=== PATIENT | female | born 1955 | race Caucasian/White ===

== ENCOUNTER 2020-10-21 17:57 | Emergency (ER) | payer OTHER ==
[~2020-10-21] VITALS: Ht 165.1 cm; Wt 83.9 kg
[2020-10-21 18:09] VITALS: BP 175/85
--- NOTE | 2020-10-21 18:20 | NUR ---
Patient in tent for covid precaution
--- NOTE | 2020-10-21 18:26 | NUR ---
65 y/o female from home c/o cough and back pain x today. States + covid contact in the house. Denies SOB/chest pain. RR even and unlabored. Skin warm, dry, intact. VSS
--- NOTE | 2020-10-21 18:48 | NUR ---
Covid swab collected and sent to lab
[2020-10-21 18:58] VITALS: BP 175/85
--- NOTE | 2020-10-21 18:59 | NUR ---
Patient discharged with v/s stable. Written and verbal after care instructions given and explained. Patient alert, oriented and verbalized understanding of instructions. Ambulatory with steady gait. All questions addressed prior to discharge. ID band removed. Patient advised to follow up with PMD. Rx of Promethazine 6.25mg, Ibuprofen 400mg given. Patient educated on indication of medication including possible reaction and side effects. Opportunity to ask questions provided and answered.
== END 2020-10-21 18:59 | disposition home or self-care (01) ==
LOC: MED 17:57
DX: R03.0 Elevated blood-pressure reading, without diagnosis of hypertension (principal); Z20.828 Contact with and (suspected) exposure to other viral communicable diseases
CPT/HCPCS: 99283; U0003

== ENCOUNTER 2023-01-21 21:44 | Inpatient (IN) | payer OTHER ==
[~2023-01-21] VITALS: Ht 162.6 cm; Wt 89.8 kg
[~2023-01-21 21:44] MED LIST: AMLO-3 PO; APIX2.5 PO; APIX5TAB PO; ATOR20TA40 PO; ATOR40TA PO; CARV12.52 PO; CARV25TA PO; HYDR-4420 PO; LISI20TA29 PO; OMEP20EC11 PO
[2023-01-21 22:07] VITALS: BP 158/77
--- NOTE | 2023-01-21 22:07 | NUR ---
Director Of Convention Services no : [phone]
--- NOTE | 2023-01-21 22:39 | NUR ---
Patient returned back from X-ray.
[2023-01-21 23:04] LABS: BASOPHILS % (AUTO) 0.4 % (0.0-2.0); EOSINOPHILS # (AUTO) 0.1 K/uL (0-0.4); EOSINOPHILS % (AUTO) 0.7 % (0.0-4.0); HEMATOCRIT 36.4 % (36-48); HEMOGLOBIN 11.8 g/dL (12.0-16.0); LYMPHOCYTES # (AUTO) 2.7 K/uL (2.5-16.5); LYMPHOCYTES % (AUTO) 29.7 % (20.5-51.1); MEAN CORPUSCULAR HEMOGLOBIN 27 pg (27-31); MEAN CORPUSCULAR HGB CONC 33 g/dL (33-37); MEAN CORPUSCULAR VOLUME 81.6 fL (80-94); MONOCYTES # (AUTO) 0.8 K/uL (0.8-1.0); MONOCYTES % (AUTO) 8.3 % (1.7-9.3); NEUTROPHILS # (AUTO) 5.5 K/uL (1.8-7.7); NEUTROPHILS % (AUTO) 60.9 % (42.2-75.2); PLATELET COUNT (AUTO) 310 K/uL (140-450); RED BLOOD CELL COUNT(AUTO) 4.47 MIL/uL (4.20-5.40); RED CELL DISTRIBUTION WIDTH 13.9 % (11.6-13.7); WHITE BLOOD COUNT (AUTO) 9.1 K/uL (4.8-10.8)
[2023-01-21] MEDS ORDERED: MORPHINE SULFATE 4 MG/ML SYR IVP ONE (23:05)
[2023-01-21] MEDS ORDERED: ONDANSETRON 4 MG/2 ML VIAL IVP ONE (23:05)
--- NOTE | 2023-01-21 23:17 | NUR ---
PT TAKEN TO BED 7
[2023-01-21 23:20] LABS: ALBUMIN 3.8 g/dL (3.4-5.0); ANION GAP 9.7 (8-16); ASPARTATE AMINOTRANSFERASE 22 U/L (15-37); CARBON DIOXIDE 28.3 mmol/L (21-32); CHLORIDE 101 mmol/L (98-107); CREATININE 0.7 mg/dL (0.6-1.3); GFR ARICAN-AMERICAN 107 mL/min (>90); GLUCOSE 119 mg/dL (74-106); LIPASE 112 U/L (73-393); SODIUM SERUM 136 mmol/L (136-145); TOTAL BILIRUBIN 0.6 mg/dL (0.0-1.0); UREA NITROGEN, BLOOD 10 mg/dL (7-18)
--- NOTE | 2023-01-21 23:48 | NUR ---
PT TAKEN TO CT
[2023-01-22] MEDS ORDERED: ONDANSETRON 4 MG/2 ML VIAL ONE (00:19)
[2023-01-22] MEDS ORDERED: MORPHINE SULFATE 4 MG/ML SYR ONE (00:19)
[2023-01-22] MEDS ORDERED: POTASSIUM CHLORIDE 10 MEQ TABER PO ONE (00:25)
--- NOTE | 2023-01-22 01:00 | NUR ---
67YR FEMALE C/O MID GASTRIC ABD PAIN . PT STATES PAIN RADIATES TO LOWER BACK. 8/10 SHARP . PT IS A&OX4 BULGARIAN SPEAKING . DENIES SOB FEVER V/D. PT IS ON BEDSIDE MONITOR HOB ELEVATED. BED AT LOWEST POSITION NKDA CARDIAC HTN
[2023-01-22] MEDS ORDERED: KETOROLAC 15 MG/ML VIAL IVP ONE (01:35)
[2023-01-22] MEDS ORDERED: DICYCLOMINE HCL LIQUID 20 MG, ALUMINUM HYD/MAG/SIMETHICONE 30 ML, LIDOCAINE VISCOUS 2% ... PO ONE ×3 (01:35)
[2023-01-22] MEDS ORDERED: ALUMINUM HYD/MAG/SIMETHICONE 30 ML UDC ONE (02:13)
[2023-01-22] MEDS ORDERED: DICYCLOMINE HCL LIQUID 10 MG/5 ML UDC ONE (02:13)
--- NOTE | 2023-01-22 02:48 | NUR ---
ADMISSION TO TELE. PENDING BED ASSIG
[2023-01-22] MEDS ORDERED: FERR-15 PO (04:32)
[2023-01-22] MEDS ORDERED: [UNRECOGNIZED DRUG - CODE] PO (04:36)
--- NOTE | 2023-01-22 04:40 | NUR ---
Patient discharged with v/s stable. Written and verbal after care instructions given and explained to parent/guardian. Parent/Guardian verbalized understanding. Ambulatorysteady gait. All questions addressed prior to discharge. Advised to follow up with PMD.
--- NOTE | 2023-01-22 04:48 | NUR ---
MED RECONCILE COMPLETED
--- NOTE | 2023-01-22 05:04 | NUR ---
COVID SWAB COLLECTED
[2023-01-22] MEDS ORDERED: MORPHINE SULFATE 2 MG/ML SYR IVP STA (05:54)
--- NOTE | 2023-01-22 06:08 | NUR ---
BELONGINGS LIST COMPLETED
--- NOTE | 2023-01-22 06:13 | NUR ---
Ultrasound at bedside.
--- NOTE | 2023-01-22 06:25 | NUR ---
ULTRASOUND AT BEDSIDE
[2023-01-22] MEDS ORDERED: POTASSIUM CHLORIDE 10 MEQ TABER PO PRN (06:35)
[2023-01-22] MEDS ORDERED: MORPHINE SULFATE 4 MG/ML SYR IVP PRN (06:35)
[2023-01-22] MEDS ORDERED: ONDANSETRON 4 MG/2 ML VIAL IVP PRN (06:35)
[2023-01-22] MEDS ORDERED: MAGNESIUM OXIDE 400 MG TAB PO PRN (06:35)
--- NOTE | 2023-01-22 07:24 | NUR ---
REPORT RECEIVED FROM NELI GREWAL. ASSUMED CARE AT THIS TIME
--- NOTE | 2023-01-22 07:51 | NUR ---
pt provided w/ breakfast . pt awake and eating in bed
--- NOTE | 2023-01-22 08:35 | NUR ---
Patient will be admitted to care of MD CHAUDHARI. Admited to TELE. Will go to room 121A. Belongings list completed. Report to JAYLON WILKES.
--- NOTE | 2023-01-22 08:45 | NUR ---
RECEIVED PATIENT FROM NIGHT ER. PATIENT CAME ON [facility] , AMBULATORY WITH ASSISTIVE DEVICE CANE.VS BP 155/77, 70 MD, 95% O2, RR 18.PERIPHERAL IV ON RAC 20G.ON TELEMONITOR.WILL CONTINUE TO MONITOR.
[2023-01-22] MEDS ORDERED: ATORVASTATIN 20 MG TAB PO SCH (09:00)
[2023-01-22] MEDS: ASPIRIN 81 MG TAB.CHEW PO SCH (09:43)
--- NOTE | 2023-01-22 10:30 | NUR ---
USED FLIGHT TEST MECHANIC DEVICE FOR OBTAINING ADMISSION ASSESSMENT, FLIGHT TEST MECHANIC ID [id number]
[2023-01-22 12:00] VITALS: BP 143/66
[2023-01-22] MEDS: HYDROcodone/APAP 5/325 MG 1 TAB TAB PO PRN (13:46)
--- NOTE | 2023-01-22 13:46 | NUR ---
FREQUENT ROUNDS DONE PATIENT COMPLAINING OF PAIN WITH INTENSITY 6ON THE ABDOMEN.WILL MEDICATE PER PRN MEDS
[2023-01-22] MEDS: hydrALAZINE 25 MG TAB PO SCH ×2 (13:47→17:42)
--- NOTE | 2023-01-22 14:36 | NUR ---
PATIENT HAS BEEN SCREENED AND CATEGORIZED LOW NUTRITION RISK. PATIENT WILL BE SEEN WITHIN 7 DAYS OF ADMISSION. 01/29/23 [facility] REFERRAL RECEIVED ON 01/22/23. REFERRAL DOES NOT MEET HIGH RISK CRITERIA PER HOSPITAL POLICY. PT WILL BE SEEN AND ASSESSED ACCORDING TO THE NUTRITION CARE POLICY. REVIEWED BY MICHELA KNOX RD
[2023-01-22 16:00] VITALS: BP 159/68
--- NOTE | 2023-01-22 19:30 | NUR ---
RECEIVED PT IN BED AWAKE, ALERT AND ORIENTED X 4. DENIES PAIN AT THIS TIME. DENIES SHORTNESS OF BREATH. SKIN WARM AND DRY TO TOUCH. SAFETY PRECAUTION IN PLACE, CALL LIGHT IN REACH.
--- NOTE | 2023-01-22 19:30 | NUR ---
endorsed the patient to scene shifter nurse for the continuity of care.
[2023-01-22 20:00] VITALS: BP 153/80
[2023-01-22] MEDS: APIXABAN 2.5 MG TAB PO SCH (20:12)
[2023-01-22] MEDS: carvediloL 12.5 MG TAB PO SCH (20:12)
[2023-01-22] MEDS: ACETAMINOPHEN 325 MG TAB PO PRN (20:13)
[2023-01-23] VITALS: BP_SYST 132; BP_SYST 143; BP_DIAS 66; BP_DIAS 68
[2023-01-23 04:00] VITALS: BP 159/78
--- NOTE | 2023-01-23 06:26 | NUR ---
PATIENT IS ASLEEP. ALL NEEDS ATTENDED TO. NO DISTRESS NOTED. SAFETY PRECAUTIONS MAINTAINED DURING THE SHIFT, CALL LIGHT REMAINS WITHIN REACH.
[2023-01-23 07:08] LABS: BASOPHILS % (AUTO) 0.5 % (0.0-2.0); EOSINOPHILS # (AUTO) 0.1 K/uL (0-0.4); EOSINOPHILS % (AUTO) 0.6 % (0.0-4.0); HEMATOCRIT 36.1 % (36-48); HEMOGLOBIN 11.9 g/dL (12.0-16.0); LYMPHOCYTES # (AUTO) 1.2 K/uL (2.5-16.5); LYMPHOCYTES % (AUTO) 12.1 % (20.5-51.1); MEAN CORPUSCULAR HEMOGLOBIN 27 pg (27-31); MEAN CORPUSCULAR HGB CONC 33 g/dL (33-37); MEAN CORPUSCULAR VOLUME 80.7 fL (80-94); MONOCYTES # (AUTO) 0.9 K/uL (0.8-1.0); MONOCYTES % (AUTO) 8.9 % (1.7-9.3); NEUTROPHILS % (AUTO) 77.9 % (42.2-75.2); PLATELET COUNT (AUTO) 234 K/uL (140-450); RED BLOOD CELL COUNT(AUTO) 4.47 MIL/uL (4.20-5.40); RED CELL DISTRIBUTION WIDTH 13.5 % (11.6-13.7); WHITE BLOOD COUNT (AUTO) 10.2 K/uL (4.8-10.8)
[2023-01-23 07:20] LABS: ANION GAP 11.6 (8-16); CARBON DIOXIDE 26.6 mmol/L (21-32); CREATININE 0.6 mg/dL (0.6-1.3); POTASSIUM 4.2 mmol/L (3.5-5.1)
[2023-01-23 07:23] LABS: MAGNESIUM 1.9 mg/dL (1.8-2.4); PHOSPHORUS 3.7 mg/dL (2.5-4.9)
--- NOTE | 2023-01-23 07:26 | NUR ---
RECEIVED PATIENT FROM COT ASSEMBLER NURSE.PATIENT IN BED. VERBALLY RESPONSES. NO OTHER SIGNS OF DISTRESS NOTED.CALL LIGHT WITHIN REACH.WILL CONTINUE TO MONITOR.
[2023-01-23 08:00] VITALS: BP 154/75
[2023-01-23] MEDS: APIXABAN 2.5 MG TAB PO SCH ×2 (08:48→20:21)
[2023-01-23] MEDS: lisinopriL 20 MG TAB PO SCH (08:49)
[2023-01-23] MEDS: amLODIPine 5 MG TAB PO SCH (08:49)
[2023-01-23] MEDS: hydrALAZINE 25 MG TAB PO SCH ×3 (08:50→17:24)
[2023-01-23] MEDS: DILTIAZEM 120 MG CAPER PO SCH (08:50)
[2023-01-23] MEDS: ASPIRIN 81 MG TAB.CHEW PO SCH (08:51)
[2023-01-23] MEDS: ATORVASTATIN 20 MG TAB PO SCH (08:51)
[2023-01-23] MEDS: FERROUS SULFATE 325 MG TABEC PO SCH (08:51)
[2023-01-23] MEDS: carvediloL 12.5 MG TAB PO SCH ×2 (08:52→20:20)
--- NOTE | 2023-01-23 10:00 | NUR ---
FREQUENT ROUNDS DONE. PATIENT IS ALERT ORIENTED. NO SIGNS OF DISTRESS NOTED.ALL NEEDS MET UNTIL NOW.
--- NOTE | 2023-01-23 11:45 | NUR ---
DC PLANNING ASSESSMENT COMPLETE PLEASE REFER TO ASSESSMENT FOR DETAILS PT REPORTS DC PLAN IS FOR PT TO RETURN HOME WITH FAMILY PROVIDING TRANSPORTATION , WHEN MEDICALLY STABLE. Addendum: 01/24/23 at 0900 by Gladis HURD Amended: Links added.
[2023-01-23 12:00] VITALS: BP 116/47
[2023-01-23] MEDS: ACETAMINOPHEN 325 MG TAB PO PRN (15:43)
[2023-01-23 16:00] VITALS: BP 125/65
[2023-01-23] MEDS ORDERED: ALBUTEROL 0.083% 2.5 MG/3 ML NEBU INH SCH (19:00)
[2023-01-23] MEDS ORDERED: IPRATROPIUM 0.02% 0.5 MG/2.5 ML NEBU INH SCH (19:00)
--- NOTE | 2023-01-23 19:15 | NUR ---
RECEIVED PT FROM MORNING SHIFT NURSE. PT IS AOX4, KHMER SPEAKING, WITH AT BEDSIDE. PT IS ON ROOM AIR, AND ON CCHO DIET. PT IS AMBULATORY WITH CANE, ABLE TO VERBALIZE NEEDS AND ABLE TO FOLLOW COMMANDS. PT HAS IV ON RIGHT AC GAUGE 20. PT SKIN IS INTACT. ALL SAFETY MEASURES IMPLEMENTED. BED IN LOW POSITION, BED WHEELS ON LOCK AND CALL LIGHT WITHIN REACH.
--- NOTE | 2023-01-23 19:28 | NUR ---
ENDORSED PATIENT TO SALVAGE GRINDER NURSE FOR CONTINUITY OF CARE.
[2023-01-23 20:00] VITALS: BP 114/57
--- NOTE | 2023-01-23 20:21 | NUR ---
ALL SCHEDULED AND PRESCRIBED MEDICATION WAS GIVEN TO PT PER MD ORDER. ALL SAFETY MEASURES IMPLEMENTED. BED IN LOW POSITION, BED WHEELS ON LOCK AND CALL LIGHT WITHIN REACH.
--- NOTE | 2023-01-23 22:00 | NUR ---
WATER AND ANOTHER PILLOW WAS GIVEN TO PT PER PT REQUEST. PT DENIES PAIN AT THIS TIME. NO S/S OF RESPIRATORY DISTRESS NOTED. ALL SAFETY MEASURES IMPLEMENTED. BED IN LOW POSITION, BED WHEELS ON LOCK AND CALL LIGHT WITHIN REACH.
[2023-01-24] VITALS: BP 122/55
--- NOTE | 2023-01-24 | NUR ---
PT IS ON SLEEP. CHEST RISE AND FALL SYMMETRICALLY NOTED. RESPIRATION IS EVEN AND UNLABORED. NO S/S OF RESPIRATORY DISTRESS NOTED. ALL SAFETY MEASURES IMPLEMENTED. BED IN LOW POSITION, BED WHEELS ON LOCK AND CALL LIGHT WITHIN REACH.
--- NOTE | 2023-01-24 02:00 | NUR ---
CHECKED THE PT STILL ON SLEEP. CHEST RISE AND FALL SYMMETRICALLY NOTED. RESPIRATION IS EVEN AND UNLABORED. NO S/S OF RESPIRATORY DISTRESS NOTED. ALL SAFETY MEASURES IMPLEMENTED. BED IN LOW POSITION, BED WHEELS ON LOCK AND CALL LIGHT WITHIN REACH.
[2023-01-24 04:00] VITALS: BP 142/71
[2023-01-24] MEDS: HYDROcodone/APAP 5/325 MG 1 TAB TAB PO PRN ×2 (04:40→23:48)
--- NOTE | 2023-01-24 04:40 | NUR ---
PT WAS GIVEN PRN PAIN MEDICATION DUE TO ABD. PAIN WITH PAIN SCALE OF 6/10. ALL SAFETY MEASURES IMPLEMENTED. BED IN LOW POSITION, BED WHEELS ON LOCK AND CALL LIGHT WITHIN REACH.
[2023-01-24 06:32] LABS: BASOPHILS % (AUTO) 0.2 % (0.0-2.0); EOSINOPHILS # (AUTO) 0.1 K/uL (0-0.4); EOSINOPHILS % (AUTO) 0.6 % (0.0-4.0); HEMOGLOBIN 11.4 g/dL (12.0-16.0); LYMPHOCYTES # (AUTO) 1.2 K/uL (2.5-16.5); MEAN CORPUSCULAR HEMOGLOBIN 27 pg (27-31); MEAN CORPUSCULAR HGB CONC 34 g/dL (33-37); MEAN CORPUSCULAR VOLUME 80.2 fL (80-94); MONOCYTES # (AUTO) 0.9 K/uL (0.8-1.0); MONOCYTES % (AUTO) 8.9 % (1.7-9.3); NEUTROPHILS # (AUTO) 7.7 K/uL (1.8-7.7); NEUTROPHILS % (AUTO) 78.3 % (42.2-75.2); PLATELET COUNT (AUTO) 215 K/uL (140-450); RED BLOOD CELL COUNT(AUTO) 4.25 MIL/uL (4.20-5.40); RED CELL DISTRIBUTION WIDTH 13.5 % (11.6-13.7); WHITE BLOOD COUNT (AUTO) 9.9 K/uL (4.8-10.8)
--- NOTE | 2023-01-24 07:23 | NUR ---
PT IS STABLE. ENDORSED PT TO MORNING SHIFT NURSE FOR CONTINUITY OF CARE.
[2023-01-24 08:00] VITALS: BP 136/63
[2023-01-24 08:08] LABS: ANION GAP 6.3 (8-16); CARBON DIOXIDE 32.7 mmol/L (21-32); CREATININE 0.6 mg/dL (0.6-1.3)
[2023-01-24] MEDS: FERROUS SULFATE 325 MG TABEC PO SCH (08:56)
[2023-01-24] MEDS: lisinopriL 20 MG TAB PO SCH (08:57)
[2023-01-24] MEDS: carvediloL 12.5 MG TAB PO SCH ×2 (08:58→20:21)
[2023-01-24] MEDS: DILTIAZEM 120 MG CAPER PO SCH (08:59)
[2023-01-24] MEDS: hydrALAZINE 25 MG TAB PO SCH ×3 (09:00→17:44)
[2023-01-24] MEDS: ATORVASTATIN 20 MG TAB PO SCH (09:00)
[2023-01-24] MEDS: ASPIRIN 81 MG TAB.CHEW PO SCH (09:01)
[2023-01-24] MEDS: amLODIPine 5 MG TAB PO SCH (09:02)
[2023-01-24] MEDS: APIXABAN 2.5 MG TAB PO SCH (09:06)
[2023-01-24 12:00] VITALS: BP 120/60
[2023-01-24 16:00] VITALS: BP 126/60
--- NOTE | 2023-01-24 16:20 | NUR ---
ASSUMED CONTINUITY OF CARE. PT. A & O x3. PT. ON BEDSIDE. CALL LIGHT WITHIN REACH.
--- NOTE | 2023-01-24 19:07 | NUR ---
REPORT GIVEN TO RAMOS RUIZ IN STABLE CONDITION.
--- NOTE | 2023-01-24 19:08 | NUR ---
RECEIVED PT FROM MORNING SHIFT NURSE. PT IS AOX4, ARMENIAN SPEAKING. PT IS ON ROOM AIR, AND ON CCHO DIET. PT IS AMBULATORY WITH CANE, ABLE TO VERBALIZE NEEDS AND ABLE TO FOLLOW COMMANDS. PT HAS IV ON RIGHT AC GAUGE 20, SALINE LOCK. PT WILL BE ON NPO PRIYA AT BREAKFAST DUE TO CAMI SCAN AT 11:30 AM. NO COMPLAIN OF PAIN AT THIS TIME. NO S/S OF RESPIRATORY DISTRESS NOTED. PT SKIN IS INTACT. ALL SAFETY MEASURES IMPLEMENTED. BED IN LOW POSITION, BED WHEELS ON LOCK AND CALL LIGHT WITHIN REACH.
[2023-01-24 20:00] VITALS: BP 136/68
--- NOTE | 2023-01-24 20:21 | NUR ---
SCHEDULED AND PRESCRIBED MEDICATION WAS GIVEN TO PT. ALL SAFETY MEASURES IMPLEMENTED. BED IN LOW POSITION, BED WHEELS ON LOCK AND CALL LIGHT WITHIN REACH.
--- NOTE | 2023-01-25 02:00 | NUR ---
PT IS ON SLEEP. CHEST RISE AND FALL SYMMETRICALLY NOTED. RESPIRATION IS EVEN AND UNLABORED. NO S/S OF RESPIRATORY DISTRESS NOTED. ALL SAFETY MEASURES IMPLEMENTED, BED IN LOW POSITION, BED WHEELS ON LOCK AND CALL LIGHT WITHIN REACH.
--- NOTE | 2023-01-25 04:00 | NUR ---
CHECKED THE PT STILL ON SLEEP. CHEST RISE AND FALL SYMMETRICALLY NOTED. RESPIRATION IS EVEN AND UNLABORED. NO S/S OF RESPIRATORY DISTRESS NOTED. ALL SAFETY MEASURES IMPLEMENTED, BED IN LOW POSITION, BED WHEELS ON LOCK AND CALL LIGHT WITHIN REACH.
[2023-01-25 06:11] LABS: BASOPHILS % (AUTO) 0.5 % (0.0-2.0); EOSINOPHILS # (AUTO) 0.1 K/uL (0-0.4); EOSINOPHILS % (AUTO) 1.5 % (0.0-4.0); HEMATOCRIT 32.7 % (36-48); LYMPHOCYTES # (AUTO) 1.7 K/uL (2.5-16.5); LYMPHOCYTES % (AUTO) 21.4 % (20.5-51.1); MEAN CORPUSCULAR HEMOGLOBIN 27 pg (27-31); MEAN CORPUSCULAR HGB CONC 34 g/dL (33-37); MEAN CORPUSCULAR VOLUME 80.8 fL (80-94); MONOCYTES # (AUTO) 0.8 K/uL (0.8-1.0); MONOCYTES % (AUTO) 10.7 % (1.7-9.3); NEUTROPHILS # (AUTO) 5.1 K/uL (1.8-7.7); NEUTROPHILS % (AUTO) 65.9 % (42.2-75.2); PLATELET COUNT (AUTO) 209 K/uL (140-450); RED BLOOD CELL COUNT(AUTO) 4.05 MIL/uL (4.20-5.40); RED CELL DISTRIBUTION WIDTH 13.4 % (11.6-13.7); WHITE BLOOD COUNT (AUTO) 7.8 K/uL (4.8-10.8)
[2023-01-25 06:21] LABS: ANION GAP 10.1 (8-16); CARBON DIOXIDE 29.5 mmol/L (21-32); CREATININE 0.7 mg/dL (0.6-1.3); POTASSIUM 4.6 mmol/L (3.5-5.1)
[2023-01-25 06:22] LABS: MAGNESIUM 2.2 mg/dL (1.8-2.4); PHOSPHORUS 4.1 mg/dL (2.5-4.9)
--- NOTE | 2023-01-25 07:23 | NUR ---
PT IS STABLE. ENDORSED PT TO MORNING NURSE FOR CONTINUITY OF CARE.
--- NOTE | 2023-01-25 07:29 | NUR ---
RECEIVED PATIENT FROM DRAW BENCH OPERATOR NURSE.PATIENT IS IN NPO STATUS .PATIENT SITTING IN BED.VERBALLY RESPONSES.NO OTHER SIGNS OF DISTRESS NOTED.CALL LIGHT WITHIN REACH.ALL SAFETY MEASURES IN PLACE.WILL CONTINUE TO MONITOR.
[2023-01-25 08:00] VITALS: BP 124/67
[2023-01-25] MEDS: carvediloL 12.5 MG TAB PO SCH ×2 (09:00→21:29)
[2023-01-25] MEDS: amLODIPine 5 MG TAB PO SCH (09:41)
[2023-01-25] MEDS: ATORVASTATIN 20 MG TAB PO SCH (09:41)
[2023-01-25] MEDS: hydrALAZINE 25 MG TAB PO SCH ×3 (09:41→17:14)
[2023-01-25] MEDS: FERROUS SULFATE 325 MG TABEC PO SCH (09:42)
[2023-01-25] MEDS: lisinopriL 20 MG TAB PO SCH (09:42)
--- NOTE | 2023-01-25 12:45 | NUR ---
PATIENT OFF THE UNIT FOR HIDA SCAN.
[2023-01-25] MEDS ORDERED: MORPHINE SULFATE 2 MG/ML SYR IVP SCH (14:00)
--- NOTE | 2023-01-25 14:14 | NUR ---
PATIENT CAME TO UNIT AFTER HIDA SCAN.PATIENT TRANSFERED TO ROOM 126B FOR NUCLEAR PRECAUTION.UNTIL 2;00 AM MORNING.
[2023-01-25 18:53] VITALS: BP 141/62
--- NOTE | 2023-01-25 19:30 | NUR ---
ENDOPRSED APTIENT TO DISHWASHER NURSE FOR CONTINUITY OF CARE.
--- NOTE | 2023-01-25 19:30 | NUR ---
RECEIVED REPORT FROM DAY SHIFT NURSE ANU FOR CONTINUITY OF CARE. PATIENT IS A&O X4, ROMANIAN SPEAKING. PATIENT IS ON ROOM AIR, BREATHING IS NORMAL WITH SYMMETRICAL RISE AND FALL OF CHEST. IV IS A 20G RAC, NO FLUIDS RUNNING AT THIS TIME. PATIENT IS LYING SEMI-FOWLERS IN BED, WATCHING TV. BED IS IN LOWEST POSITION, WHEELS LOCKED, CALL LIGHT IN PLACE. WILL CONTINUE TO OBSERVE PATIENT.
[2023-01-25 20:00] VITALS: BP 134/68
--- NOTE | 2023-01-25 22:30 | NUR ---
PATIENT CALLED, WHEN I ENTERED THE ROOM, PATIENT WAS ON THE PHONE WITH DAUGHTER. PATIENT'S DAUGHTER STATED THAT HER MOTHER'S IV WAS BURNING HER AND ASKED IF IT COULD BE REMOVED SINCE WAS CURRENTLY NOT HOOKED UP TO AN IV. I EXPLAINED TO THE DAUGHTER THAT THE IV CAN BE REMOVED, BUT I NEED TO PUT ANOTHER IV IN HER SO I WOULD HAVE ACCESS TO THE VEIN IN THE EVENT THAT SOMETHING HAPPENED REQUIRING ME TO GIVE HER MOTHER SOMETHING IMMEDIATELY. THE DAUGHTER ASKED IF THEY COULD REMOVE THE OLD IV NOW, AND THEN PLACE THE NEW ONE IN THE MORNING. I EXPLAINED TO THE DAUGHTER THAT I WOULD NEED TO PUT IN A NEW ONE TONIGHT JUST IN CASE I WOULD NEED ACCESS TO HER MOTHER'S VEIN DURING THE NIGHT. I TOLD THE DAUGHTER THAT I WOULD PUT A NEW IV IN THE PATIENT AND REMOVE THE OLD ONE. THE DAUGHTER THANKED ME. A NEW IV WAS PLACED INTO THE PATIENT BY KATRIN RESTREPO, AND THE OLD ONE WAS REMOVED. NEW IV IS A 22G IN THE LEFT FOREARM. PATIENT THANKED US. WILL CONTINUE TO OBSERVE PATIENT.
--- NOTE | 2023-01-26 | NUR ---
DR. RYAN ROSE CAME TO SEE PATIENT. HE ASSESSED THE PATIENT AND ASKED HER IF SHE HAD ANY PAIN, PATIENT STATED NO. INFORMED ME TO GO AHEAD AND GIVE THE PATIENT SOMETHING TO EAT AND DRINK NOW AND THEN LEAVE HER NPO EXCEPT MEDS. I GAVE PATIENT A HAM AND CHEESE SANDWICH AND WATER; AND I INFORMED PATIENT THAT AFTER THIS THERE WOULD BE NOTHING ELSE BECAUSE OF HER TEST TOMORROW. PATIENT ACKNOWLEDGED UNDERSTANDING. I INFORMED OF WHAT I GAVE PATIENT, SAID THAT WAS FINE. WILL LOOK IN ON PATIENT IN FEW MINUTES TO CHECK STATUS OF FOOD CONSUMPTION.
--- NOTE | 2023-01-26 00:35 | NUR ---
LOOKED IN ON PATIENT. PATIENT HAD FINISHED MEAL AND HAD THROWN AWAY HER FOOD CONTAINER AND ALL HER WATER. PATIENT RESTATED UNDERSTANDING STATING; "NO MORE FOOD OR DRINK". I TOLD HER YES, AND SHE THANKED ME LYING ON HER SIDE TO GO TO SLEEP. PATIENT'S BREATHING IS NORMAL WITH SYMMETRICAL RISE AND FALL OF CHEST. WILL CONTINUE TO OBSERVE PATIENT.
[2023-01-26 06:09] LABS: BASOPHILS % (AUTO) 0.6 % (0.0-2.0); EOSINOPHILS # (AUTO) 0.1 K/uL (0-0.4); EOSINOPHILS % (AUTO) 1.9 % (0.0-4.0); HEMATOCRIT 33.3 % (36-48); HEMOGLOBIN 11.2 g/dL (12.0-16.0); LYMPHOCYTES # (AUTO) 1.5 K/uL (2.5-16.5); LYMPHOCYTES % (AUTO) 24.2 % (20.5-51.1); MEAN CORPUSCULAR HEMOGLOBIN 27 pg (27-31); MEAN CORPUSCULAR HGB CONC 34 g/dL (33-37); MEAN CORPUSCULAR VOLUME 79.7 fL (80-94); MONOCYTES # (AUTO) 0.7 K/uL (0.8-1.0); MONOCYTES % (AUTO) 10.5 % (1.7-9.3); NEUTROPHILS % (AUTO) 62.8 % (42.2-75.2); PLATELET COUNT (AUTO) 248 K/uL (140-450); RED BLOOD CELL COUNT(AUTO) 4.18 MIL/uL (4.20-5.40); RED CELL DISTRIBUTION WIDTH 13.2 % (11.6-13.7); WHITE BLOOD COUNT (AUTO) 6.3 K/uL (4.8-10.8)
--- NOTE | 2023-01-26 06:34 | NUR ---
PATIENT IS SCHEDULED FOR A STRESS TEST TODAY AT 1030; AND A LAP CHOLECYSTECTOMY AT 1500. PATIENT SLEPT THROUGHOUT THE NIGHT; CONSENT FOR PROCEDURE IS PRINTED OUT AND IN THE CHART. WILL ENDORSE TO DAY SHIFT NURSE FOR CONSENT SIGNATURE. WILL CONTINUE TO OBSERVE PATIENT.
[2023-01-26 06:42] LABS: ALBUMIN 3.2 g/dL (3.4-5.0); ANION GAP 10.8 (8-16); CARBON DIOXIDE 28.9 mmol/L (21-32); CREATININE 0.7 mg/dL (0.6-1.3); POTASSIUM 3.7 mmol/L (3.5-5.1); TOTAL BILIRUBIN 0.4 mg/dL (0.0-1.0)
[2023-01-26 06:47] LABS: MAGNESIUM 2.2 mg/dL (1.8-2.4); PHOSPHORUS 3.9 mg/dL (2.5-4.9)
--- NOTE | 2023-01-26 07:29 | NUR ---
ENDORSE TO DAY SHIFT NURSE SRUTHY FOR CONTINUITY OF CARE. PATIENT IS STABLE.
--- NOTE | 2023-01-26 07:38 | NUR ---
RECEIVED PATIENT FROM CHIEF COMPRESSOR STATION ENGINEER NURSE. PATIENT IN NPO STATUS. NO OTHER SIGNS OF DISTRESS NOTED. PATIENT VERBALLY RESPONSES.CALL LIGHT WITHIN REACH. WILL CONTINUE TO MONITOR.
[2023-01-26 08:00] VITALS: BP 130/64
[2023-01-26] MEDS: ATORVASTATIN 20 MG TAB PO SCH (08:45)
[2023-01-26] MEDS: lisinopriL 20 MG TAB PO SCH (08:46)
[2023-01-26] MEDS: hydrALAZINE 25 MG TAB PO SCH ×3 (08:46→17:28)
[2023-01-26] MEDS: amLODIPine 5 MG TAB PO SCH (08:47)
[2023-01-26] MEDS: FERROUS SULFATE 325 MG TABEC PO SCH (08:47)
[2023-01-26] MEDS: carvediloL 12.5 MG TAB PO SCH ×2 (08:47→21:06)
[2023-01-26] MEDS ORDERED: REGADENOSON 0.4 MG/5 ML SYR IV SCH (10:30)
[2023-01-26] MEDS ORDERED: LIDOCAINE OINTMENT 5% 35 GM TUBE TP ONE (14:19)
--- NOTE | 2023-01-26 14:30 | NUR ---
PATIENT CAME BACK FROM [facility]. FAMILY MEMBER AT BEDSIDE. ASKING QUESTIONS REGARDING THE PLAN OF SURGERY. GAVE ADVISE REGARDING THE PLAN OF SURGERY. NOTICED SANDWICH AND SODA ON THE TABLE. PATIENT IS KEPT ON NPO STATUS REMOVED THE FOOD AND DISCARDED. ADVISED THE FAMILY MEMBER REGARDING THE NEED FOR KEEPING NPO.
--- NOTE | 2023-01-26 15:50 | NUR ---
SURGERY POSTPONED. PATIENT CAME FROM OR TO ROOM.
[2023-01-26 16:00] VITALS: BP 134/69
--- NOTE | 2023-01-26 19:30 | NUR ---
ENDORSED THE PATIENT TO STOCK SHIPPER NURSE FOR THE CONTINUITY OF CARE.
[2023-01-26] MEDS: ACETAMINOPHEN 325 MG TAB PO PRN (21:06)
--- NOTE | 2023-01-26 21:06 | NUR ---
PATIENT COMPLAINED OF HEADACHE, MEDICATED.
[2023-01-27] VITALS: BP 134/66
--- NOTE | 2023-01-27 05:53 | NUR ---
PATIENT IN BED AWAKE. NO DISTRESS NOTED ON ROOM AIR. NO COMPLAINTS OF PAIN OR ANY DISCOMFORT AT THIS TIME. CALL LIGHT IN REACH. PATIENT IN STABLE CONDITION.
[2023-01-27 07:09] LABS: BASOPHILS % (AUTO) 0.9 % (0.0-2.0); EOSINOPHILS # (AUTO) 0.2 K/uL (0-0.4); EOSINOPHILS % (AUTO) 3.6 % (0.0-4.0); HEMATOCRIT 35.1 % (36-48); HEMOGLOBIN 11.7 g/dL (12.0-16.0); LYMPHOCYTES # (AUTO) 1.7 K/uL (2.5-16.5); LYMPHOCYTES % (AUTO) 32.1 % (20.5-51.1); MEAN CORPUSCULAR HEMOGLOBIN 27 pg (27-31); MEAN CORPUSCULAR HGB CONC 33 g/dL (33-37); MEAN CORPUSCULAR VOLUME 81.1 fL (80-94); MONOCYTES # (AUTO) 0.5 K/uL (0.8-1.0); MONOCYTES % (AUTO) 9.8 % (1.7-9.3); NEUTROPHILS # (AUTO) 2.9 K/uL (1.8-7.7); NEUTROPHILS % (AUTO) 53.6 % (42.2-75.2); PLATELET COUNT (AUTO) 267 K/uL (140-450); RED BLOOD CELL COUNT(AUTO) 4.33 MIL/uL (4.20-5.40); RED CELL DISTRIBUTION WIDTH 13.6 % (11.6-13.7); WHITE BLOOD COUNT (AUTO) 5.3 K/uL (4.8-10.8)
--- NOTE | 2023-01-27 07:39 | NUR ---
ENDORSED PATIENT TO NURSE DAVID FOR CONTINUITY OF CARE. PATIENT STABLE.
--- NOTE | 2023-01-27 07:40 | NUR ---
RECEIVED PT FROM NIGHT RN, PT IS UZBEK SPEAKING ON ROOM AIR, LYING ON THE BED WITH SIDE RAILS UP AND CALL LIGHT WITHIN REACH, IV LINE NOTED ON THE LEFT FOREARM G. 22 ON SALINE LOCK, NO SIGN OF DISTRESS NOTED AND WILL CONTIENU TO MONITOR PT.
[2023-01-27 07:42] LABS: CARBON DIOXIDE 26.7 mmol/L (21-32); CREATININE 0.7 mg/dL (0.6-1.3); POTASSIUM 3.7 mmol/L (3.5-5.1)
[2023-01-27 08:00] VITALS: BP 147/41
[2023-01-27 08:10] LABS: MAGNESIUM 2.2 mg/dL (1.8-2.4); PHOSPHORUS 4.8 mg/dL (2.5-4.9)
--- NOTE | 2023-01-27 08:36 | NUR ---
RECEIVED A CALL FROM DR. ROSE AND GAVE A TELEPHONE ORDER TO GIVE PT ROCEPHIN 1GM IV Q24H, KEEP PT NPO AND DO A TYPE AND SCREEN, DR. ROSE SAID THAT HE WILL DO SURGERY TO PT TODAY, ORDERS VERIFIED AND WILL BE CARRIED OUT.
--- NOTE | 2023-01-27 08:45 | NUR ---
SPOKE TP PT NOW AND INFORMED PT THAT DR. ROSE CALLED AND SAID THAT HE WILL DO SURGERY, PT WAS TOLD TO BE KEPT NPO FROM THIS TIME.
[2023-01-27] MEDS: FERROUS SULFATE 325 MG TABEC PO SCH (10:16)
[2023-01-27] MEDS: lisinopriL 20 MG TAB PO SCH (10:17)
[2023-01-27] MEDS: carvediloL 12.5 MG TAB PO SCH ×2 (10:17→21:19)
[2023-01-27] MEDS: amLODIPine 5 MG TAB PO SCH (10:18)
[2023-01-27] MEDS: hydrALAZINE 25 MG TAB PO SCH ×3 (10:19→21:18)
[2023-01-27] MEDS: ATORVASTATIN 20 MG TAB PO SCH (10:21)
[2023-01-27 16:00] VITALS: BP 113/50
[2023-01-27] MEDS ORDERED: fentaNYL citrate 0.05 MG/ML - 50mL vial IV ONE (16:00)
[2023-01-27] MEDS ORDERED: DEXAMETHASONE 10 MG/ML VIAL ONE (16:00)
[2023-01-27] MEDS ORDERED: ROCURONIUM 50 MG/5 ML VIAL IV ONE (16:00)
[2023-01-27] MEDS ORDERED: ONDANSETRON 4 MG/2 ML VIAL ONE (16:00)
[2023-01-27] MEDS ORDERED: ePHEDrine 50 MG/ML VIAL ONE ×2 (16:00→17:27)
[2023-01-27] MEDS ORDERED: SUGAMMADEX SODIUM 200 MG/2 ML VIAL IV ONE ×2 (16:00→16:46)
[2023-01-27] MEDS ORDERED: PROPOFOL 200 MG/20 ML VIAL IV ONE ×2 (16:00→17:27)
[2023-01-27] MEDS ORDERED: SEVOFLURANE 250 ML BTL INH ONE (16:00)
[2023-01-27] MEDS ORDERED: ONDANSETRON 4 MG/2 ML VIAL IVP PRN (16:45)
[2023-01-27] MEDS: LACTATED RINGERS 1,000 ML IV SCH (16:45)
[2023-01-27] MEDS ORDERED: diphenhydrAMINE 50 MG/ML VIAL IVP PRN (16:45)
[2023-01-27] MEDS ORDERED: LIDOCAINE/EPI MPF 2%1:200000 10 ML VIAL INJ ONE (16:45)
[2023-01-27] MEDS ORDERED: MEPERIDINE 25 MG/ML SYR IVP PRN (16:45)
[2023-01-27] MEDS ORDERED: BUPIVACAINE MPF 0.25% 10 ML VIAL INJ ONE (16:45)
[2023-01-27] MEDS ORDERED: fentaNYL citrate 0.05 MG/ML VIAL ONE (16:46)
[2023-01-27] MEDS ORDERED: HYDROmorphone PFS 2 MG/ML SYR ONE (19:36)
[2023-01-27] MEDS: HYDROmorphone 1 MG/ML AMP IVP PRN ×2 (19:36→19:46)
--- NOTE | 2023-01-27 19:41 | NUR ---
GAVE REPORT TO NIGHT RN FOR CONTINUITY OF CARE, PT IS STILL IN SURGERY.
--- NOTE | 2023-01-27 20:00 | NUR ---
NURSE REPORT REPORT OBTAINED FROM [facility] NURSE KIMBERLEY AND THIS NURSE ASSUMED CARE. ADMISSION WASN'T DONE BY THIS NURSE. PATIENT WAS IN RECOVERY WHEN THIS NURSE GOT REPORT. WILL TRY TO DO ADMISSION LATER.
[2023-01-27 20:15] VITALS: BP 143/58
--- NOTE | 2023-01-27 20:30 | NUR ---
NURSE REPORT REPORT OBTAINED FROM RECOVERY NURSE CHURCH AT 1999 AND PATIENT ARRIVED ABOUT THIS TIME. NO C/O PAIN. ERI DRAINING SANGUINOUS FLUID AND EDWARDS WITH YELLOW URINE.
[2023-01-28] MEDS: LACTATED RINGERS 1,000 ML IV SCH ×4 (01:05→22:11)
[2023-01-28] MEDS: HYDROmorphone 1 MG/ML AMP IVP PRN (03:00)
--- NOTE | 2023-01-28 03:00 | NUR ---
NURSE NOTES VSS. AFEB. C/O PAIN AND MEDICATED WITH DIALUDID 1 MG IVP.
[2023-01-28 06:13] LABS: BASOPHILS % (AUTO) 0.4 % (0.0-2.0); HEMATOCRIT 35.2 % (36-48); HEMOGLOBIN 11.6 g/dL (12.0-16.0); LYMPHOCYTES # (AUTO) 0.6 K/uL (2.5-16.5); MEAN CORPUSCULAR HEMOGLOBIN 27 pg (27-31); MEAN CORPUSCULAR HGB CONC 33 g/dL (33-37); MEAN CORPUSCULAR VOLUME 81.9 fL (80-94); MONOCYTES # (AUTO) 0.1 K/uL (0.8-1.0); NEUTROPHILS # (AUTO) 5.1 K/uL (1.8-7.7); PLATELET COUNT (AUTO) 246 K/uL (140-450); RED BLOOD CELL COUNT(AUTO) 4.29 MIL/uL (4.20-5.40); RED CELL DISTRIBUTION WIDTH 13.4 % (11.6-13.7); WHITE BLOOD COUNT (AUTO) 5.7 K/uL (4.8-10.8)
[2023-01-28 06:35] LABS: ALBUMIN 3.1 g/dL (3.4-5.0); ANION GAP 13.8 (8-16); CARBON DIOXIDE 26.7 mmol/L (21-32); CREATININE 0.6 mg/dL (0.6-1.3); POTASSIUM 5.5 mmol/L (3.5-5.1); TOTAL BILIRUBIN 0.5 mg/dL (0.0-1.0)
[2023-01-28 07:26] LABS: LYMPHOCYTES % (AUTO) 9.7 % (20.5-51.1); MONOCYTES % (AUTO) 1.2 % (1.7-9.3); NEUTROPHILS % (AUTO) 88.7 % (42.2-75.2)
[2023-01-28 08:00] VITALS: BP 120/60
--- NOTE | 2023-01-28 08:00 | NUR ---
NURSE REPORT REPORT GIVEN TO DAYSHIFT NURSE YUNIEL TO ASSUME CARE OF PATIENT. ALL QUESTIONS ANSWERED. ADALID HERNANDEZ RN
[2023-01-28] MEDS: amLODIPine 5 MG TAB PO SCH (09:37)
[2023-01-28] MEDS: ATORVASTATIN 20 MG TAB PO SCH (09:37)
[2023-01-28] MEDS: carvediloL 12.5 MG TAB PO SCH ×2 (09:37→21:00)
[2023-01-28] MEDS: lisinopriL 20 MG TAB PO SCH (09:37)
[2023-01-28] MEDS: hydrALAZINE 25 MG TAB PO SCH ×3 (09:38→17:17)
[2023-01-28] MEDS: FERROUS SULFATE 325 MG TABEC PO SCH (09:39)
[2023-01-28] MEDS: HYDROcodone/APAP 5/325 MG 1 TAB TAB PO PRN ×2 (14:23→22:11)
[2023-01-28 16:00] VITALS: BP 139/69
[2023-01-29] VITALS: BP 133/66
[2023-01-29] MEDS: HYDROcodone/APAP 5/325 MG 1 TAB TAB PO PRN (04:56)
--- NOTE | 2023-01-29 07:38 | NUR ---
NURSES NOTE PATIENT RECEIVED AT BED SIDE , A/OX4 , VSS , ON ROOM AIR , ON CARDIAC DIET AMBULATORY , CONTINENT X2, ON IV FLUID RL 120CC/H , SKIN INTACT , SAFETY PROACTION ON PLACE , SIDE RAILS UP X3 BED IN LOWER POSITION , CALL LIGHT WITHIN REACH , NO COMPLAIN AT THIS TIME , STILL UNDER OBSERVE .
--- NOTE | 2023-01-29 07:46 | NUR ---
NURSES NOTE PATIENT SEEN BY DR DRAIN REMOVED , PT STILL UNDER OBSERVE .
[2023-01-29] MEDS: hydrALAZINE 25 MG TAB PO SCH (08:18)
[2023-01-29] MEDS: carvediloL 12.5 MG TAB PO SCH (08:18)
[2023-01-29] MEDS: ATORVASTATIN 20 MG TAB PO SCH (08:19)
[2023-01-29] MEDS: lisinopriL 20 MG TAB PO SCH (08:19)
[2023-01-29] MEDS: FERROUS SULFATE 325 MG TABEC PO SCH (08:19)
[2023-01-29] MEDS: amLODIPine 5 MG TAB PO SCH (08:19)
[2023-01-29] MEDS ORDERED: ACET-9525 PO (08:29)
[2023-01-29 08:42] VITALS: BP 128/64
[2023-01-29 08:55] VITALS: BP 128/64
[2023-01-29] MEDS ORDERED: ENOXAPARIN 40 MG/0.4 ML SYR SUBQ SCH (09:00)
[2023-01-29] MEDS ORDERED: SODIUM POLYSTYRENE 15 GM/60 ML UDBTL PO SCH (09:00)
[2023-01-29] MEDS: LACTATED RINGERS 1,000 ML IV SCH (10:25)
[2023-01-29 10:26] LABS: ANION GAP 10.1 (8-16); CARBON DIOXIDE 30.7 mmol/L (21-32); CREATININE 0.9 mg/dL (0.6-1.3); POTASSIUM 3.8 mmol/L (3.5-5.1)
--- NOTE | 2023-01-29 10:31 | NUR ---
NURSES NOTE PATIENT A/OX4 , VSS , PATIENT HAS DISCHARGE TO GO HOME , MEDICATION RECONCILED , DISCHARGE PACKET EXPLAIN FOR PATIENT PATIENT VERBALIZED UNDERSTANDING OF GIVEN , ALL HER DOCUMENT SIGN AND PLACED IN CHART , HER BELONGING TAKEN IV AND ARM BAND REMOVED , ASSISTED TO LOBBY AND PICKED UP BY HER FAMILY , ADDRESS TO FLOW UP WITHIN ONE WEEK WITH SURGEON FOR REMOVED STITCHES.
== END 2023-01-29 11:25 | disposition home or self-care (01) | DRG 418 ==
LOC: MED 21:44 → OBSVTOIN 01-22 06:41 → MTU 01-22 06:41 → MMU 01-25 15:57
PROVIDERS: ADMIT Hospitalist; ATTEND Hospitalist
PROC: 0DNU4ZZ Release Omentum, Percutaneous Endoscopic Approach (ICD-10-PCS; 2023-01-27)
PROC: 0FT44ZZ Resection of Gallbladder, Percutaneous Endoscopic Approach (ICD-10-PCS; principal; 2023-01-27 17:00)
DX: K80.00 Calculus of gallbladder with acute cholecystitis without obstruction (principal); E87.1 Hypo-osmolality and hyponatremia; E87.6 Hypokalemia; I10 Essential (primary) hypertension; E78.5 Hyperlipidemia, unspecified; I48.0 Paroxysmal atrial fibrillation; Z20.822 Contact with and (suspected) exposure to COVID-19; Z79.899 Other long term (current) drug therapy
CPT/HCPCS: 36415; 71045; 76705; 78445; 80048; 80053; 82374; 83690; 83735; 84100; 84484; 85025; 86886; 86900; 86901; 87070; 87075; 87081; 87186; 87205; 93005; 96374; 96375; 99285; A9500; A9502; J0696; J1100; J1170; J1644; J1650; J1885; J2001; J2270; J2405; J2704; J2785; J3010; J3490; J7030; J7060; J7613; J7644; Q0092

== ENCOUNTER 2023-03-07 19:10 | Emergency (ER) | payer OTHER ==
[~2023-03-07] VITALS: Ht 162.6 cm; Wt 86.2 kg
[~2023-03-07 19:10] MED LIST changes: +ACET-9525 PO; -APIX2.5 PO; -ATOR40TA PO; -CARV25TA PO; +FERR-15 PO; +[UNRECOGNIZED DRUG - CODE] PO
[2023-03-07 19:41] VITALS: BP 161/92
--- NOTE | 2023-03-07 20:00 | NUR ---
PT TAKEN TO BED 5
--- NOTE | 2023-03-07 20:17 | NUR ---
Dr. Goncalves examining patient.
[2023-03-07 20:41] LABS: BASOPHILS % (AUTO) 0.7 % (0.0-2.0); EOSINOPHILS # (AUTO) 0.4 K/uL (0-0.4); EOSINOPHILS % (AUTO) 7.3 % (0.0-4.0); HEMATOCRIT 34.1 % (36-48); HEMOGLOBIN 11.3 g/dL (12.0-16.0); LYMPHOCYTES # (AUTO) 1.5 K/uL (2.5-16.5); LYMPHOCYTES % (AUTO) 28.7 % (20.5-51.1); MEAN CORPUSCULAR HEMOGLOBIN 27 pg (27-31); MEAN CORPUSCULAR HGB CONC 33 g/dL (33-37); MEAN CORPUSCULAR VOLUME 81.3 fL (80-94); MONOCYTES # (AUTO) 0.4 K/uL (0.8-1.0); MONOCYTES % (AUTO) 7.9 % (1.7-9.3); NEUTROPHILS # (AUTO) 2.9 K/uL (1.8-7.7); NEUTROPHILS % (AUTO) 55.4 % (42.2-75.2); PLATELET COUNT (AUTO) 205 K/uL (140-450); RED CELL DISTRIBUTION WIDTH 15.5 % (11.6-13.7); WHITE BLOOD COUNT (AUTO) 5.3 K/uL (4.8-10.8)
--- NOTE | 2023-03-07 20:41 | NUR ---
Urine sample collected and sent to lab.
[2023-03-07 20:43] LABS: APPEARANCE,URINE CLEAR (CLEAR); BILIRUBIN,URINE NEGATIVE (NEGATIVE); BLOOD, URINE NEGATIVE (NEGATIVE); COLOR,URINE YELLOW (YELLOW); LEUKOCYTE ESTERASE ,URINE NEGATIVE (NEGATIVE); NITRITE, URINE NEGATIVE (NEGATIVE); PH,URINE 7.5 (5.0-9.0); UGLUCOSE NEGATIVE (NEGATIVE)
--- NOTE | 2023-03-07 20:58 | NUR ---
Ultrasound at bedside.
[2023-03-07 21:00] LABS: ALBUMIN 3.6 g/dL (3.4-5.0); ANION GAP 7.5 (8-16); CARBON DIOXIDE 29.9 mmol/L (21-32); CREATININE 0.6 mg/dL (0.6-1.3); POTASSIUM 3.4 mmol/L (3.5-5.1); TOTAL BILIRUBIN 0.5 mg/dL (0.0-1.0)
[2023-03-07] MEDS ORDERED: FURO-572 PO (22:58)
--- NOTE | 2023-03-07 23:02 | NUR ---
Dr. Goncalves examining patient.
[2023-03-07 23:22] VITALS: BP 154/86
--- NOTE | 2023-03-07 23:22 | NUR ---
Patient discharged with v/s stable. Written and verbal after care instructions given and explained. Patient alert, oriented and verbalized understanding of instructions. All questions addressed prior to discharge. ID band removed. Patient advised to follow up with PMD. Rx of Lasix sent to preferred pharmacy. Patient educated on indication of medication including possible reaction and side effects. Opportunity to ask questions provided and answered.
== END 2023-03-07 23:22 | disposition home or self-care (01) ==
LOC: MED 19:10
DX: I11.0 Hypertensive heart disease with heart failure (principal); I50.9 Heart failure, unspecified; R60.0 Localized edema; I48.91 Unspecified atrial fibrillation; M19.90 Unspecified osteoarthritis, unspecified site; Z79.899 Other long term (current) drug therapy; Z79.01 Long term (current) use of anticoagulants
CPT/HCPCS: 36415; 80053; 81003; 83880; 85025; 93970; 99284; Q0092

== ENCOUNTER 2023-12-27 10:39 | Emergency (ER) | payer OTHER ==
[~2023-12-27] VITALS: Ht 162.6 cm; Wt 95.3 kg
[~2023-12-27 10:39] MED LIST changes: +FURO-572 PO
[2023-12-27 11:45] VITALS: BP 158/84; PULSE 68; RESP 16; TEMP 97.4; O2SAT 98
[2023-12-27] MEDS: MORPHINE SULFATE 4 MG/ML SYR IM ONE (12:58)
[2023-12-27 13:27] VITALS: BP 179/81; PULSE 72; RESP 20; TEMP 98.2; O2SAT 98
[2023-12-27] MEDS ORDERED: ACET-503 PO (13:41)
== END 2023-12-27 14:19 | disposition home or self-care (01) ==
LOC: MED 10:39
DX: M79.632 Pain in left forearm (principal); M25.522 Pain in left elbow; I48.91 Unspecified atrial fibrillation; I10 Essential (primary) hypertension; Z90.49 Acquired absence of other specified parts of digestive tract; Z79.899 Other long term (current) drug therapy; Z79.01 Long term (current) use of anticoagulants
CPT/HCPCS: 96372; 99283; J2270

== ENCOUNTER 2024-06-25 09:30 | Inpatient (IN) | payer OTHER ==
[~2024-06-25] VITALS: Ht 165.1 cm; Wt 91.6 kg
[~2024-06-25 09:30] MED LIST changes: +ACET-503 PO; -HYDR-4420 PO; +HYDR-5856 PO
[2024-06-25 09:40] VITALS: BP 169/82; PULSE 74; RESP 16; TEMP 97.8; O2SAT 97
[2024-06-25] MEDS ORDERED: NITROGLYCERIN 2% 1 GM PKT TP ONE (10:12)
[2024-06-25] MEDS: NITROGLYCERIN 2% 1 GM PKT TP ONE (10:34)
[2024-06-25] MEDS: ASPIRIN 81 MG TAB.CHEW PO ONE (10:34)
[2024-06-25 10:35] LABS: BASOPHILS % (AUTO) 0.3 % (0.0-2.0); EOSINOPHILS % (AUTO) 0.3 % (0.0-4.0); HEMATOCRIT 34.7 % (36-48); HEMOGLOBIN 11.7 g/dL (12.0-16.0); LYMPHOCYTES # (AUTO) 0.6 K/uL (2.5-16.5); LYMPHOCYTES % (AUTO) 6.3 % (20.5-51.1); MEAN CORPUSCULAR HEMOGLOBIN 28 pg (27-31); MEAN CORPUSCULAR HGB CONC 34 g/dL (33-37); MEAN CORPUSCULAR VOLUME 82.1 fL (80-94); MONOCYTES # (AUTO) 0.2 K/uL (0.8-1.0); MONOCYTES % (AUTO) 1.9 % (1.7-9.3); NEUTROPHILS # (AUTO) 9.2 K/uL (1.8-7.7); NEUTROPHILS % (AUTO) 91.2 % (42.2-75.2); PLATELET COUNT (AUTO) 231 K/uL (140-450); RED BLOOD CELL COUNT(AUTO) 4.22 MIL/uL (4.20-5.40); RED CELL DISTRIBUTION WIDTH 13.1 % (11.6-13.7); WHITE BLOOD COUNT (AUTO) 10.1 K/uL (4.8-10.8)
[2024-06-25 11:18] LABS: ANION GAP 17.1 (8-16); CALCIUM 9.7 mg/dL (8.5-10.1); CARBON DIOXIDE 21.8 mmol/L (21-32); CREATININE 0.9 mg/dL (0.6-1.3); POTASSIUM 3.9 mmol/L (3.5-5.1)
[2024-06-25] MEDS ORDERED: ONDANSETRON 4 MG/2 ML VIAL IVP PRN (12:50)
[2024-06-25] MEDS ORDERED: MORPHINE SULFATE 2 MG/ML SYR IVP PRN (12:50)
[2024-06-25] MEDS: ALBUTEROL 0.083% 2.5 MG/3 ML NEBU INH SCH (13:00)
[2024-06-25] MEDS: IPRATROPIUM 0.02% 0.5 MG/2.5 ML NEBU INH SCH (13:00)
[2024-06-25] MEDS ORDERED: BACL10TA4 PO (13:47)
[2024-06-25] MEDS ORDERED: FAMO-92 PO (13:47)
[2024-06-25] MEDS ORDERED: HYDR25TA32 PO (13:47)
[2024-06-25] MEDS ORDERED: METH4TAB1 PO (13:47)
[2024-06-25 16:00] VITALS: BP 130/76; PULSE 62; PULSE 75; PULSE 78; RESP 16; TEMP 96.6; O2SAT 96
[2024-06-25] MEDS: ACETAMINOPHEN 325 MG TAB PO PRN (16:49)
[2024-06-25 20:00] VITALS: BP 143/58; PULSE 58; PULSE 66; RESP 18; TEMP 97.8; O2SAT 95
[2024-06-26] VITALS: BP 150/70; PULSE 60; RESP 18; TEMP 97; O2SAT 95
[2024-06-26 04:00] VITALS: BP 141/65; PULSE 51; PULSE 60; RESP 18; TEMP 97.9; O2SAT 95
[2024-06-26 06:39] LABS: HEMATOCRIT 34.3 % (36-48); HEMOGLOBIN 11.3 g/dL (12.0-16.0); LYMPHOCYTES # (AUTO) 0.8 K/uL (2.5-16.5); LYMPHOCYTES % (AUTO) 6.7 % (20.5-51.1); MEAN CORPUSCULAR HEMOGLOBIN 27 pg (27-31); MEAN CORPUSCULAR HGB CONC 33 g/dL (33-37); MONOCYTES # (AUTO) 0.6 K/uL (0.8-1.0); MONOCYTES % (AUTO) 4.9 % (1.7-9.3); NEUTROPHILS # (AUTO) 10.9 K/uL (1.8-7.7); NEUTROPHILS % (AUTO) 88.4 % (42.2-75.2); PLATELET COUNT (AUTO) 225 K/uL (140-450); RED BLOOD CELL COUNT(AUTO) 4.19 MIL/uL (4.20-5.40); RED CELL DISTRIBUTION WIDTH 13.7 % (11.6-13.7); WHITE BLOOD COUNT (AUTO) 12.4 K/uL (4.8-10.8)
[2024-06-26 07:09] LABS: CALCIUM 9.6 mg/dL (8.5-10.1); CARBON DIOXIDE 24.7 mmol/L (21-32); CREATININE 0.7 mg/dL (0.6-1.3); POTASSIUM 3.7 mmol/L (3.5-5.1)
[2024-06-26 08:00] VITALS: BP 140/62; PULSE 54; PULSE 59; RESP 18; TEMP 97.7; O2SAT 99
[2024-06-26 08:08] LABS: FREE T4 (FREE THYROXINE) 1.27 ng/dL (0.76-1.46); THYROID STIMULATING HORMONE 0.11 uIU/mL (0.34-3.74)
[2024-06-26] MEDS: ASPIRIN 81 MG TAB.CHEW PO SCH (08:30)
[2024-06-26] MEDS ORDERED: HEPARIN PER PHARMACY MC PRN (10:40)
[2024-06-26 11:20] LABS: INR 1.16 (0.8-1.2); PARTIAL THROMBOPLASTIN TIME 28.2 secs (22-35.6); PROTHROMBIN TIME 12.1 secs (10.8-13.4)
[2024-06-26] MEDS: hePARIN / DEXT 5% PREMIX 250 ML IV SCH (11:58)
[2024-06-26 12:00] VITALS: BP 148/70; PULSE 61; PULSE 64; RESP 18; TEMP 97.8; O2SAT 97
[2024-06-26 16:00] VITALS: BP 146/71; PULSE 63; PULSE 67; RESP 18; TEMP 97.5; O2SAT 96
[2024-06-26 20:00] VITALS: BP 130/67; PULSE 66; PULSE 67; RESP 18; TEMP 97.9; O2SAT 93
[2024-06-26] MEDS: carvediloL 12.5 MG TAB PO SCH (22:33)
[2024-06-27] VITALS: BP 124/59; PULSE 56; PULSE 65; RESP 19; TEMP 98.8; O2SAT 93
[2024-06-27 04:00] VITALS: BP 144/65; PULSE 57; PULSE 60; RESP 19; TEMP 97.9; O2SAT 94
[2024-06-27 06:23] VITALS: BP 144/65; PULSE 60; RESP 19; TEMP 97.9
[2024-06-27 07:41] LABS: BASOPHILS # (AUTO) 0.2 K/uL (0.00-0.22); BASOPHILS % (AUTO) 2.3 % (0.0-2.0); EOSINOPHILS % (AUTO) 0.3 % (0.0-4.0); HEMATOCRIT 36.5 % (36-48); HEMOGLOBIN 12.3 g/dL (12.0-16.0); LYMPHOCYTES # (AUTO) 1.2 K/uL (2.5-16.5); LYMPHOCYTES % (AUTO) 12.8 % (20.5-51.1); MEAN CORPUSCULAR HEMOGLOBIN 28 pg (27-31); MEAN CORPUSCULAR HGB CONC 34 g/dL (33-37); MEAN CORPUSCULAR VOLUME 82.5 fL (80-94); MONOCYTES # (AUTO) 0.8 K/uL (0.8-1.0); MONOCYTES % (AUTO) 8.8 % (1.7-9.3); NEUTROPHILS % (AUTO) 75.8 % (42.2-75.2); PLATELET COUNT (AUTO) 255 K/uL (140-450); RED BLOOD CELL COUNT(AUTO) 4.42 MIL/uL (4.20-5.40); RED CELL DISTRIBUTION WIDTH 13.6 % (11.6-13.7); WHITE BLOOD COUNT (AUTO) 9.3 K/uL (4.8-10.8)
[2024-06-27 07:54] LABS: ANION GAP 12.6 (8-16); CALCIUM 9.6 mg/dL (8.5-10.1); CARBON DIOXIDE 25.8 mmol/L (21-32); CREATININE 0.7 mg/dL (0.6-1.3); POTASSIUM 3.4 mmol/L (3.5-5.1)
[2024-06-27 08:00] VITALS: BP 145/71; PULSE 57; PULSE 61; RESP 18; TEMP 96.9; O2SAT 97
[2024-06-27 08:01] VITALS: BP 159/76; PULSE 60; RESP 19; TEMP 97.9
[2024-06-27] MEDS: lisinopriL 20 MG TAB PO SCH (09:00)
== END 2024-06-27 10:05 | DRG 641 ==
LOC: MED 09:30 → OBSVTOIN 12:53 → MTU 12:53
PROVIDERS: ADMIT Student in an Organized Health Care Education/Training Program; ATTEND Student in an Organized Health Care Education/Training Program
DX: E87.1 Hypo-osmolality and hyponatremia (principal); I24.89 Other forms of acute ischemic heart disease; I10 Essential (primary) hypertension; E66.9 Obesity, unspecified; Z68.33 Body mass index [BMI] 33.0-33.9, adult; Z79.01 Long term (current) use of anticoagulants; Z79.899 Other long term (current) drug therapy
CPT/HCPCS: 36415; 71045; 80048; 83880; 84439; 84443; 84484; 85025; 85610; 85730; 87081; 93005; 99291; J1644